=== PATIENT | male | born 1990 | race Caucasian/White ===

== ENCOUNTER 2018-06-08 17:04 | Emergency (ER) | payer OTHER ==
[2018-06-08 18:11] VITALS: BP 129/85; PULSE 95; TEMP 97; BMI 21.6
--- NOTE | 2018-06-08 20:12 | PDOC ---
History of Present Illness - General Chief Complaint: Pain Stated Complaint: PAIN Time Seen by Provider: 06/08/18 19:42 - History of Present Illness Initial Comments: Yefri Paris is a 28yo man with an unknown medical history. He states that he is here because "my body is shutting down." When asked to provide additional information, he states that "it should be obvious." Mr Paris is unwilling to provide any additional information. . Past History - Past Medical History Allergies/Adverse Reactions: Allergies Allergy/AdvReac Type Severity Reaction Status Date / Time lamotrigine [From Lamictal] Allergy Verified 06/08/18 18:12 Penicillins Allergy Verified 06/08/18 18:11 COPD: No CHF: No Psychiatric Problems: Yes (anxiety, depression, heroin use) Seizures: Yes - Suicide/Smoking/Psychosocial Hx Smoking History: Never smoked Have you smoked in the past 12 months: No Information on smoking cessation initiated: No Hx Alcohol Use: No Drug/Substance Use Hx: No Review of Systems - Review of Systems Comments:: 06/08/18 20:14 Will not provide, declines to answer *Physical Exam - Vital Signs Last Vital Signs Temp Pulse Resp BP Pulse Ox 97 F L 95 H 16 129/85 100 06/08/18 17:04 06/08/18 17:04 06/08/18 17:04 06/08/18 17:04 06/08/18 17:04 - Physical Exam Comments: Exam limited due to unwillingness to cooperate General: No acute distress, appears stated age, thin HEENT: PERRL, EOMI, MMM, voice normal Pulm: Comfortable on room air Abd: Non-distended Ext: Moves all extremities Skin: Normal color, no rashes or lesions on skin not covered by clothing. Small bruise in right AC consistent with recent IV or blood draw Neuro: A&Ox3, CN grossly intact, normal speech Psych: Agitated Moderate Sedation - Procedure Monitoring Vital Signs: Procedure Monitoring Vital Signs Temperature 97 F L 06/08/18 17:04 Pulse Rate 95 H 06/08/18 17:04 Respiratory Rate 16 06/08/18 17:04 Blood Pressure 129/85 06/08/18 17:04 O2 Sat by Pulse Oximetry (%) 100 06/08/18 17:04 Medical Decision Making - Medical Decision Making 06/08/18 20:17 Yefri Paris is a 28yo man with an unknown medical history who presents to the ED because his "body is shutting down." He is unwilling to provide any details or additional information. - Patient demanding a private room or a different hospital. Informed patient that there is currently not a private room available in the ED, he will receive the same care regardless of where his bed is located in the ED. He refuses to answer any additional questions and states that he wishes to go to a different hospital. Advised patient that he may choose to go to a different hospital if he decides to do so. - Spoke to his nurse, Anita, who was told the same information by Mr Paris - she reports that he demanded a private room and to be left alone 06/08/18 20:40 - Attempt made by Dr Ruiz to obtain additional information. Mr Paris continued to be hostile, resist any exam, and insisted on leaving without any workup. He was escorted from the ED by hospital security. Discussed with Dr Ruiz. Geovanna Tellez PGY1 *DC/Admit/Observation/Transfer Diagnosis at time of Disposition: Pain - Discharge Dispostion Disposition: AGAINST MEDICAL ADVICE Condition at time of disposition: Unchanged/Unknown - Referrals - Patient Instructions - Post Discharge Activity
--- NOTE | 2018-06-08 20:29 | PDOC ---
Attending Attestation - HPI HPI: The patient is a 28 year old male, with no significant PMH, who presents to the emergency department today complaining of diffuse body pain for 1 month. HPI is limited secondary to patients hostility and unwillingness to cooperate, using excessive profanity and and derogatory verbiage. Patient insists on leaving the ED without workup. Security was contacted to assist patient out, ambulating with steady gait. The patient denies chest pain, shortness of breath, headache and dizziness. Denies fever, chills, nausea, vomit, diarrhea and constipation. Denies dysuria, frequency, urgency and hematuria. Allergies: Lamotrigine and Penicillins Past surgical history: None reported Social history: No reported PCP: Patient wouldnt disclose 06/08/18 20:39 - Physicial Exam PE: GENERAL: +Hostile and excessive profanity. +Unwilling to cooperate or answer any questions. +Full physical exam cannot be performed secondary to patients poor behavior. Awake, alert, and fully oriented. HEAD: No signs of trauma EYES: PERRLA, EOMI, sclera anicteric, conjunctiva clear ENT: Auricles normal inspection, hearing grossly normal, nares patent, oropharynx clear without exudates. Moist mucosa NECK: Normal ROM, supple, no lymphadenopathy, JVD, or masses LUNGS: Breath sounds equal, clear to auscultation bilaterally. No wheezes, and no crackles HEART: Regular rate and rhythm, normal S1 and S2, no murmurs, rubs or gallops ABDOMEN: Soft, nontender, normoactive bowel sounds. No guarding, no rebound. No masses EXTREMITIES: Normal range of motion, no edema. No clubbing or cyanosis. No cords, erythema, or tenderness NEUROLOGICAL: Cranial nerves II through XII grossly intact. Normal speech, normal gait SKIN: Warm, Dry, normal turgor, no rashes or lesions noted. 06/08/18 20:40 - Medical Decision Making Documentation prepared by BRENDA Arriola, acting as medical claims representative for Barbara Ruiz DO. 06/08/18 20:40 <Roxane Milan - Last Filed: 06/08/18 20:38> - Resident Resident Name: Geovanna Tellez - ED Attending Attestation I have performed the following: I have examined & evaluated the patient, The case was reviewed & discussed with the resident, I agree w/resident's findings & plan, Exceptions are as noted - Physicial Exam PE: This physical exam was entered incorrectly - the patient refused physical exam 06/10/18 09:13 - Medical Decision Making 06/08/18 20:28 I, Dr. Barbara Ruiz, DO, attest that this document has been prepared under my direction and personally reviewed by me in its entirety. I further attest, that it accurately reflects all work, treatment, procedures and medical decision -making performed by me. 06/08/18 20:28 a/p: 28yo male with generalized body pain - refusing to provide any history or allow for a physical exam requesting to go to another er <Barbara Ruiz - Last Filed: 06/10/18 09:14> *DC/Admit/Observation/Transfer <Roxane Milan - Last Filed: 06/08/18 20:38> <Barbara Ruiz - Last Filed: 06/10/18 09:14> Diagnosis at time of Disposition: Pain - Discharge Dispostion Disposition: AGAINST MEDICAL ADVICE Condition at time of disposition: Unchanged/Unknown
== END 2018-06-08 21:24 | disposition left against medical advice (07) ==
LOC: JER 17:04
DX: R52 Pain, unspecified (principal); Z86.59 Personal history of other mental and behavioral disorders; Z86.69 Personal history of other diseases of the nervous system and sense organs; Z88.8 Allergy status to other drugs, medicaments and biological substances
CPT/HCPCS: 99281-25

== ENCOUNTER 2018-06-14 12:12 | Emergency (ER) | payer OTHER ==
[2018-06-14 12:26] VITALS: BP 130/85; PULSE 91; TEMP 98.3
--- NOTE | 2018-06-14 13:12 | PDOC ---
History of Present Illness - General Chief Complaint: Pain Stated Complaint: BODY ACHES,STOMACH ACHE AND NO APPETITTE Time Seen by Provider: 06/14/18 12:21 History Source: Patient Exam Limitations: No Limitations - History of Present Illness Initial Comments: 06/14/18 13:53 28 YOM with gynecomastia, Cyclic vomiting, heroin abuse on buprenorphine, ADHD, anxiety and depression Presenting with 1 month of lethargy, malaise, nausea, diarrhea, abdominal pain and general body aches. Per mother at bedside, increased fatigue and decreased intake x 2 days. +mild cough. no f/c, cp, dizziness, [place], focal weakness or paresthesias. no urinary sx. Last heroin use ~1 week ago, per his report.. Went to ED 1 week ago, left AMA at that time for similar sx and refused workup. Also previously ~2 weeks ago, where he visited [facility], where he was subsequently sent and admitted to [facility] for anxiety/panic attack. Currently not taking his medications for ADHD, anxiety and depression. Allergies: Lamotrigine and Penicillins Past surgical history: gynecomastia. Social history: +ETOH use, heroin abuse. +smoking PCP: unknown ROS Constitutional: no fevers or chills. +weakness, fatigue. HEENT: no headache or dizziness. No congestion. No visual/hearing disturbances. CVS: no cp or syncope. Resp: no sob. No cough. Gastrointestinal: no nausea/vomiting. +abdominal pain Genitourinary: no urinary sx, hematuria. MUSCULOSKELETAL: No joint pain and swelling. +myalgias, body aches. SKIN: no redness or skin changes, no discharge, no rash. No wounds. Hematologic: no easy bruising/bleeding. NEUROLOGIC: No headache, dizziness, LOC or altered mental status. No weakness, numbness or tingling. Allergic/Immunologic: no allergies All other systems reviewed and negative, or as documented in HPI. PE: General: sleeping. Arousable to voice and touch and commands. minimally conversive. thin young male. HEENT: NCAT, PERRL, EOMI, clear conjunctiva, anicteric, moist mucus membranes, clear oropharynx, no oral lesions.. Neck: neck supple, FROM Resp: CTAB, normal and even respirations, no respiratory distress CVS: RRR, no murmurs, 2+ peripheral pulses throughout, no peripheral edema Abdomen: soft, nondistended, diffusely tender. No rebound or guarding. No CVAT. no lower quadrant tenderness. no peritoneal findings. Back: nontender, normal inspection and ROM MSK: no edema, TALAMANTES x4, ROM intact. No clubbing or cyanosis. normal bulk and tone. Neuro: alert, oriented appropriately; quiet and reserved. Speech clear. Follows commands. no focal neuro deficits, ambulatory, gait stable. Skin: warm and well perfused, cap refill <2 sec, normal color 06/14/18 16:07 06/16/18 07:26 Past History - Past Medical History Allergies/Adverse Reactions: Allergies Allergy/AdvReac Type Severity Reaction Status Date / Time lamotrigine [From Lamictal] Allergy Verified 06/14/18 12:16 Penicillins Allergy Verified 06/14/18 12:15 Home Medications: Ambulatory Orders NK [No Known Home Medication] 06/14/18 COPD: No CHF: No Psychiatric Problems: Yes (anxiety, depression, heroin use) Seizures: Yes - Suicide/Smoking/Psychosocial Hx Smoking History: Current some day smoker Have you smoked in the past 12 months: No Number of Cigarettes Smoked Daily: 1 Information on smoking cessation initiated: No Hx Alcohol Use: No Drug/Substance Use Hx: Yes ( PER HISTORY HEROIN) *Physical Exam - Vital Signs Last Vital Signs Temp Pulse Resp BP Pulse Ox 98.3 F 91 H 20 130/85 99 06/14/18 12:15 06/14/18 12:15 06/14/18 12:15 06/14/18 12:15 06/14/18 12:15 Moderate Sedation - Procedure Monitoring Vital Signs: Procedure Monitoring Vital Signs Temperature 98.3 F 06/14/18 12:15 Pulse Rate 91 H 06/14/18 12:15 Respiratory Rate 20 06/14/18 12:15 Blood Pressure 130/85 06/14/18 12:15 O2 Sat by Pulse Oximetry (%) 99 06/14/18 12:15 ED Treatment Course - LABORATORY CBC & Chemistry Diagram: 06/14/18 14:24 06/14/18 15:20 Medical Decision Making - Medical Decision Making 06/14/18 13:53 hpi as documented VS wnl, no derangements or suggestion of toxidrome currently DDx. opioid w/d, intoxication. substance abuse, dehydration, anemia, electrolyte /metabolic derangements, infection prior notes reviewed, labs and lytes_normal. LFTS_normal. doubt abdominal pathology/infection. no focal areas of tenderness, no rebound or guarding, also chronically present x 2-4 weeks, so doubt acute pathology Utox grosssly positive with benzo, opioids and marijuana given IVF and tylenol for pain. more likely opioid w/d syndrome dispo: Pt to be discharged in stable condition. Patient and family made aware of impression and plan, return precautions discussed (including but not limited to worsening pain or symptoms), fevers, or signs of infection, chest pain, respiratory distress, inability to tolerate oral intake, dehydration, syncope, or neurologic changes). Follow up with PMD and/or specialist as recommended, follow up information provided, take medications as instructed for duration of time. continue with supportive care, avoid triggers and precipitants. minimize use of drugs, f/u psychiatry tomorrow to discuss management of chronic psych/ drug abuse conditions. 06/14/18 13:54 06/14/18 16:13 06/16/18 07:27 *DC/Admit/Observation/Transfer Diagnosis at time of Disposition: Opioid withdrawal Abdominal pain Qualifiers: Abdominal location: generalized Qualified Code(s): R10.84 - Generalized abdominal pain - Discharge Dispostion Disposition: HOME Condition at time of disposition: Stable Decision to Admit order: No - Referrals Referrals: [facility] [place] [place] [Provider Group] [facility] [Provider Group] - Patient Instructions Printed Discharge Instructions: DI for Abdominal Pain-Adult, DI for Musculoskeletal Pain Additional Instructions: Your laboratory results were all normal, Follow up with your physician and consultants as instructed, take your medications as instructed including tylenol and fluids no narcotics will be given. you could be experiencing opioid withdrawal symptoms Return if worsening symptoms including fevers, headache, vomiting, visual or hearing disturbances, abdominal pain, chest pain, shortness of breath, syncope, dehydration, inability to take things by mouth/vomiting, altered mental status, or worsening concerning symptoms. you should get help for your prior drug/ opioid use, do not drink alcohol with your medications. you are given primary care doctors to followup and psychiatrist to be seen tomorrow to discuss further your medication regimen and treatment of your conditions - Post Discharge Activity
[2018-06-14] MEDS ORDERED: ACETAMINOPHEN 325 MG TABLET (FP) PO ONE (13:15)
[2018-06-14] MEDS ORDERED: SODIUM CHLORIDE 1,000 ML IV STA (13:47)
[2018-06-14] MEDS ORDERED: FAMOTIDINE 20 MG/50 ML IVPB 20 MG/50 ML MG IVPB ONE ×2 (13:47→14:12)
[2018-06-14] MEDS ORDERED: ACETAMINOPHEN 325 MG TABLET (FP) ONE (13:54)
[2018-06-14 14:37] LABS: URINE APPEARANCE Clear; URINE BILIRUBIN Negative (NEGATIVE); URINE COLOR Yellow; URINE GLUCOSE (UA) Negative (NEGATIVE); URINE KETONE Negative (NEGATIVE); URINE LEUK ESTERASE Negative (NEGATIVE); URINE NITRITE Negative (NEGATIVE); URINE PROTEIN Negative (NEGATIVE); URINE UROBILINOGEN 0.2 (0.2-1.0)
[2018-06-14 15:32] LABS: BASO % 0.1 % (0-2.0); EOS % 0.3 % (0-4.5); HEMOGLOBIN 15.6 GM/dl (11.7-16.9); LYMPH % 9.1 % (8-40); MCH 29.3 pg (25.7-33.7); MCHC 33.2 g/dl (32.0-35.9); MEAN CELL VOLUME 88.2 fl (80-96); MEAN PLT VOLUME 8.8 fl (7.5-11.1); MONO % 3.7 % (3.8-10.2); NEUT % 86.8 % (42.8-82.8); PLATELET COUNT 324 K/MM3 (134-434); RBC 5.32 M/mm3 (4.00-5.60); RDW 12.4 % (11.9-15.9); WHITE BLOOD COUNT 8.6 K/mm3 (4.0-10.8)
[2018-06-14 15:46] LABS: ALBUMIN 3.7 g/dl (3.4-5.0); ALK PHOS 47 U/L (45-117); ANION GAP 5 MMOL/L (8-16); BILIRUBIN,TOTAL 0.6 mg/dl (0.2-1); BLOOD UREA NITROGEN 8 mg/dl (7-18); CALCIUM 8.9 mg/dl (8.5-10); CHLORIDE 106 mmol/L (98-107); CO2 25 mmol/L (21-32); CREATININE 0.6 mg/dl (0.55-1.3); GLUCOSE,RANDOM 126 mg/dl (74-106); POTASSIUM 3.9 mmol/L (3.5-5.1); SGOT/AST 13 U/L (15-37); SGPT/ALT 14 U/L (13-61); SODIUM 136 mmol/L (136-145); TOT PROT 6.4 g/dl (6.4-8.2)
[2018-06-14 17:30] LABS: COCAINE, UR NEGATIVE ng/ml (CUTOFF=300); METHADONE, UR NEGATIVE ng/ml (CUTOFF=300); PHENCYCLIDINE,URINE NEGATIVE ng/ml (CUTOFF=25); URINE AMPHETAMINES NEGATIVE ng/ml (CUTOFF=500); URINE BARBITURATES NEGATIVE ng/ml (CUTOFF=200)
[2018-06-14 17:32] LABS: URINE BENZODIAZEPINES POSITIVE ng/ml (CUTOFF=200)
[2018-06-14 17:33] LABS: OPIATES, URI POSITIVE ng/ml (CUTOFF=300)
== END 2018-06-14 16:26 | disposition home or self-care (01) ==
LOC: FER 12:12
PROC: 3E033GC Introduction of Other Therapeutic Substance into Peripheral Vein, Percutaneous Approach (ICD-10-PCS; principal; 2018-06-14)
PROC: 3E0337Z Introduction of Electrolytic and Water Balance Substance into Peripheral Vein, Percutaneous Approach (ICD-10-PCS; 2018-06-14)
DX: R10.84 Generalized abdominal pain (principal); F11.23 Opioid dependence with withdrawal
CPT/HCPCS: 36415; 80053; 80307; 81003; 82550; 85025; 96361; 96365; 99283-25; J7030